=== PATIENT | male | born 1985 | race African-American/Black ===

== ENCOUNTER 2024-01-29 12:47 | Emergency (ER) | payer MEDICAID ==
[~2024-01-29] VITALS: Ht 180.3 cm; Wt 73.0 kg
[2024-01-29 13:01] VITALS: O2SAT 98
[2024-01-29 15:18] LABS: HEMATOCRIT. 40.8 % (42.0-52.0); HEMOGLOBIN. 13.9 g/dL (14.0-18.0); MEAN CORPUSCULAR HGB CONC 34.1 g/dL (31.0-37.0); MEAN PLATELET VOLUME 7.3 fl (7.4-10.4); PLATELET 389 x1000/uL (130-400); RED BLOOD CELL COUNT 4.35 mill/uL (4.7-6.1); RED CELL DISTRIBUTION WIDTH 13.3 % (11.6-14.6); WHITE BLOOD COUNT 19.3 x1000/uL (4.5-11.0)
[2024-01-29 15:20] LABS: CARBON DIOXIDE 25 mEq/L (21-32); CHLORIDE 104 mEq/L (98-107); POTASSIUM 3.7 mEq/L (3.5-5.1); SODIUM 138 mEq/L (136-145)
[2024-01-29 15:21] LABS: CALCIUM 9.9 mg/dL (8.7-10.4)
[2024-01-29 15:22] LABS: DIFFERENTIAL COMMENT 1
[2024-01-29 15:26] LABS: CREATININE 1.1 mg/dL (0.6-1.3); GLUCOSE 92 mg/dL (70-105); UREA NITROGEN BLOOD 10 mg/dL (9-23)
[2024-01-29 16:29] LABS: TROPONIN I HIGH SENSITIVITY < 4 ng/L (3.0-53)
[2024-01-29] MEDS ORDERED: NAPR-1176 MT (17:34)
[2024-01-29] MEDS ORDERED: AZIT250T12 MT (17:36)
[2024-01-29] MEDS: KETOROLAC 30MG/ML VIAL IM ONE (17:54)
[2024-01-29 18:00] VITALS: BP 96/67; PULSE 74; RESP 18; TEMP 36.89184; O2SAT 100
[2024-01-29 18:05] LABS: PLATELET ESTIMATE NORMAL
== END 2024-01-29 18:03 | disposition home or self-care (01) ==
LOC: ER 13:00
DX: J18.9 Pneumonia, unspecified organism (principal); R09.1 Pleurisy; Z88.2 Allergy status to sulfonamides
CPT/HCPCS: 99285; 71045; 80048; 85025; 84484; 36415; 93005; 96372; J1885